=== PATIENT | female | born 1985 | race Caucasian/White ===

== ENCOUNTER 2018-08-29 06:24 | Day surgery (SDC) | payer OTHER ==
[2018-08-29] MEDS ORDERED: DESFLURANE 15 MIN (07:00)
[2018-08-29] MEDS: LACTATED RINGER'S 1,000 ML IV (07:10)
[2018-08-29 07:20] LABS: ADD MAN DIFF? NO
[2018-08-29 07:23] LABS: BASOPHILS % 0.4 % (0.0-2.0); EOSINOPHILS # 0.1 10^3/ul (0.0-0.5); EOSINOPHILS % 1.5 % (0.0-7.0); HEMATOCRIT 39.1 % (37.0-47.0); HEMOGLOBIN 13.1 g/dl (12.0-16.0); LYMPHOCYTES # 2.3 10^3/ul (0.8-2.9); MEAN CORPUSCULAR HEMOGLOBIN 28.1 pg (29.0-33.0); MEAN CORPUSCULAR HGB CONC 33.5 g/dl (32.0-37.0); MEAN CORPUSCULAR VOLUME 83.7 fl (82.0-101.0); MEAN PLATELET VOLUME 10.2 fl (7.4-10.4); MONOCYTE # 0.6 10^3/ul (0.3-0.9); MONOCYTES % 6.9 % (0.0-11.0); NEUTROPHIL # 5.8 10^3/ul (1.6-7.5); NEUTROPHILS % 64.9 % (39.0-77.0); PLATELET COUNT 261 10^3/UL (140-415); RED BLOOD COUNT 4.67 10^6/ul (4.20-5.40)
[2018-08-29 07:23] LABS: WHITE BLOOD COUNT 8.9 10^3/ul (4.8-10.8)
[2018-08-29] MEDS: LIDOCAINE 1%/EPI (1:100,000) (MDV) 20 ML (08:11)
[2018-08-29] MEDS: FERRIC SUBSULFATE 8 GM VIAL TOP (08:12)
[2018-08-29] MEDS ORDERED: ONDANSETRON 4 MG INJ IV (09:00)
[2018-08-29] MEDS ORDERED: MEPERIDINE 25 MG INJ IV (09:00)
[2018-08-29] MEDS ORDERED: HYDROmorphONE 1 MG/5 ML IV SYRINGE IV ×3 (09:00)
[2018-08-29] MEDS ORDERED: FENTAnyl 50 MCG/ML VIAL IV (09:00)
[2018-08-29] MEDS ORDERED: DIPHENHYDRAMINE 50 MG INJ IV (09:00)
[2018-08-29] MEDS ORDERED: hydrALAzine 20 MG INJ IV (09:00)
[2018-08-29] MEDS ORDERED: OXYCODONE/ACETAMINOPHEN (5/325) TAB PO ×2 (09:00)
[2018-08-29] MEDS ORDERED: LABETALOL HCL 20MG INJ IV (09:00)
[2018-08-29] MEDS ORDERED: PROPOFOL 20 ML (09:03)
[2018-08-29] MEDS ORDERED: ONDANSETRON 4 MG INJ (09:03)
[2018-08-29] MEDS ORDERED: MIDAZOLAM 1 MG/ML 2 ML INJ (09:03)
[2018-08-29] MEDS ORDERED: KETOROLAC 30 MG INJ (09:03)
[2018-08-29] MEDS ORDERED: CEFAZOLIN 1 GM INJ (09:03)
[2018-08-29] MEDS ORDERED: METOCLOPRAMIDE 10 MG INJ (09:03)
[2018-08-29] MEDS ORDERED: FENTAnyl 50 MCG/ML VIAL (09:39)
[2018-08-29] MEDS: FENTAnyl 50 MCG/ML VIAL IV ×2 (10:58→11:04)
[2018-08-29] MEDS: SOD CHLORIDE 0.9% 1,000 ML IV (11:00)
[2018-08-29] MEDS: KETOROLAC 30 MG INJ IV (12:01)
== END 2018-08-29 12:40 | disposition home or self-care (01) ==
LOC: SDS 06:24
DX: R87.613 High grade squamous intraepithelial lesion on cytologic smear of cervix (HGSIL) (principal)
CPT/HCPCS: 57522; 84703; 85025; 86850; 86900; 86901; 88305; 88307